=== PATIENT | female | born 1985 | race African-American/Black ===

== ENCOUNTER → 2020-08-09 | Outpatient (CLI) | payer OTHER ==
--- NOTE | 2020-08-09 11:04 | REP ---
INDICATION: LT AXILLARY TAIL BREAST LUMP W/BREAST CA AGE 35. COMPARISON: None TECHNIQUE: Digital mammography was obtained bilaterally in the CC and MLO projections in both 2D and 3D modalities. In addition, an exaggerated CC lateral view of the left breast was obtained. There are no prior examinations for comparison. Ultrasonography of the palpable area left breast axilla was obtained. FINDINGS: The breasts are symmetric in size and shape. Dense heterogenous fibroglandular elements are seen bilaterally. There are no masses. There is no internal architectural store zambrano. There are no suspicious calcifications. There is no skin thickening or nipple retraction. Lymph nodes are seen in each axilla. That is not an abnormal finding. Ultrasonography of the left axilla over the palpable area shows a 3 x 1.2 by 1.5 cm sized peripherally hypoechoic centrally echogenic reniform shaped nodule which has a vascular hilum. This is a lymph node. There are no breast tissue abnormalities. The Volpara volumetric breast density pattern is b. IMPRESSION: BIRADS/ACR category 1 negative mammogram. A negative mammogram and a negative ultrasound examination should not curtail biopsy of a clinically palpable mass or clinically suspicious area the breast. This patient's Tyrer-Cuzick lifetime breast cancer risk assessment score is 14.5%. This mammogram was interpreted with the aid of an FDA-approved computer-aided detection system. The patient states she had a clinical breast exam 1 week ago The patient letter being requested is M2. RECOMMENDATION: Repeat screening mammography recommended 1 year (for women over 40). <Electronically signed by Waqar Srinivasan > 08/09/20 1100
== END ==
LOC: M WHC 07:50
PROVIDERS: ATTEND Nurse Practitioner Primary Care
DX: N63.32 Unspecified lump in axillary tail of the left breast (principal); Z80.3 Family history of malignant neoplasm of breast
CPT/HCPCS: 76642; 77066; G0279